=== PATIENT | male | born 1960 | race Caucasian/White ===

== ENCOUNTER 2016-10-08 11:52 | Emergency (ER) | payer OTHER ==
[~2016-10-08] VITALS: Wt 136.4 kg
[~2016-10-08 11:52] MED LIST: ADV50050 INH; FAMO-95 PO; GABA300C16 PO; GLIP-95 PO; HYDR-762 PO; LEVO750T8 PO; LISI20TA11 PO; MED4DP PO; METF1000 PO; RTATR NEB; RTPRO5 NEB; SITA50TA2 PO
[2016-10-08] MEDS ORDERED: FAMOTIDINE 20 MG INJ IV STA (12:14)
[2016-10-08] MEDS ORDERED: SOD CHLORIDE 0.9% 1,000 ML IV STA (12:14)
[2016-10-08] MEDS ORDERED: ONDANSETRON 4 MG INJ IV STA (12:14)
[2016-10-08] MEDS ORDERED: ALBUTEROL 0.083% (NEB) 2.5 MG/3 ML AMP NEB STA (12:15)
[2016-10-08] MEDS ORDERED: IPRATROPIUM (NEB) 0.5 MG/2.5 ML AMP NEB STA (12:15)
[2016-10-08 12:37] LABS: ADD SCAN DIFF NO
[2016-10-08 12:42] LABS: BASOPHILS % 0.5 % (0.0-2.0); EOSINOPHILS # 0.2 10^3/ul (0.0-0.5); EOSINOPHILS % 2.6 % (0.0-7.0); HEMATOCRIT 52.3 % (42.0-52.0); HEMOGLOBIN 17.1 g/dl (14.0-18.0); LYMPHOCYTES # 1.1 10^3/ul (0.8-2.9); LYMPHOCYTES % 18.5 % (15.0-51.0); MEAN CORPUSCULAR HEMOGLOBIN 29.1 pg (29.0-33.0); MEAN CORPUSCULAR HGB CONC 32.7 g/dl (32.0-37.0); MEAN CORPUSCULAR VOLUME 88.9 fl (82.0-101.0); MONOCYTE # 0.7 10^3/ul (0.3-0.9); NEUTROPHIL # 3.8 10^3/ul (1.6-7.5); NEUTROPHILS % 66.1 % (39.0-77.0); PLATELET COUNT 117 10^3/UL (140-415); RED BLOOD COUNT 5.88 10^6/ul (4.70-6.10); RED CELL DISTRIBUTION WIDTH 14.2 % (11.5-14.5); WHITE BLOOD COUNT 5.7 10^3/ul (4.8-10.8)
[2016-10-08 12:51] LABS: ALBUMIN 4.2 g/dl (3.3-4.9); POTASSIUM 3.6 mmol/L (3.5-5.1)
[2016-10-08 12:53] LABS: BILIRUBIN,DIRECT 0.2 mg/dl (0.00-0.20); BILIRUBIN,INDIRECT 2.6 mg/dl (0-1.1); BILIRUBIN,TOTAL 2.8 mg/dl (0.2-1.3); CREATININE 0.59 mg/dl (0.61-1.24)
[2016-10-08 12:54] LABS: ALBUMIN/GLOBULIN RATIO 0.91; CALCIUM 8.9 mg/dl (8.4-10.2); TOTAL PROTEIN 8.8 g/dl (6.1-8.1)
[2016-10-08] MEDS ORDERED: hydrALAzine 20 MG INJ IV ONE (13:00)
[2016-10-08] MEDS ORDERED: HYDROCODONE/APAP (5/325) TAB PO ONE (14:00)
[2016-10-08] MEDS ORDERED: OXYC5CAP17 PO (14:07)
[2016-10-08] MEDS ORDERED: oxyCODONE (CR) 10 MG TAB [oxyCONTIN] PO ONE (14:30)
--- NOTE | 2016-10-08 15:05 | RADRPT ---
PROCEDURE: CT Abdomen and Pelvis without contrast. CLINICAL INDICATION: Lower abdominal pain TECHNIQUE: CT of the abdomen and pelvis was performed on a multi-detector scanner without IV contr ast. Coronal and sagittal images were reformatted from the axial data set. One or more of the foll owing dose reduction techniques were used: automated exposure control, adjustment of the mA and/or kV according to patient size, use of iterative reconstruction technique. CTDI = 14.22 mGy. DLP = 87 5.54 mGy-cm. COMPARISON: None. FINDINGS: CT abdomen: The lung bases are clear. The heart size is normal, without pericardial effusion. Liver, gallbladd er, biliary tree, pancreas, spleen, adrenal glands and kidneys are unremarkable. No urolithiasis or obstructive uropathy is identified. The stomach is grossly unremarkable. The aorta is of normal caliber. There is no retroperitoneal lymphadenopathy. The ryan hepatis reg ion is clear. CT pelvis: No bowel obstruction, free intraperitoneal air or abscess is identified. There is no diverticulosis , diverticulitis, colitis or appendicitis. Urinary bladder is grossly unremarkable. No pelvic mass , free fluid or lymphadenopathy is identified. The surrounding osseous structures are remarkable for mild degenerative spondylosis of the spine. N o osteolytic or osteoblastic lesion is detected. IMPRESSION: 1. No urolithiasis or obstructive uropathy is seen. 2. No mass, lymphadenopathy, or focal acute inflammatory process is identified. RPTAT: EE .Mazin Avila MD, Date Time Electronically viewed and signed by .Mazin Avila MD, MD on 10/08/2016 15:05 .R/
--- NOTE | 2016-10-08 16:53 | RADRPT ---
PROCEDURE: CT Abdomen and Pelvis without contrast. CLINICAL INDICATION: Lower abdominal pain TECHNIQUE: CT of the abdomen and pelvis was performed on a multi-detector scanner without IV contr ast. Coronal and sagittal images were reformatted from the axial data set. One or more of the foll owing dose reduction techniques were used: automated exposure control, adjustment of the mA and/or kV according to patient size, use of iterative reconstruction technique. CTDI = 23.7 mGy. DLP = 173 3.05 mGy-cm. COMPARISON: None. FINDINGS: CT abdomen: Patchy left lower lobe pulmonary consolidation is noted, concerning for pneumonia. The heart size i s normal, without pericardial effusion. The liver is cirrhotic. Indeterminate 2.4 cm hypodensity i s seen in the hepatic dome (3-43). Gallbladder, biliary tree and pancreas are unremarkable. Spleno megaly is noted measuring 15 cm. Adrenal glands and kidneys are unremarkable. No urolithiasis or o bstructive uropathy is identified. The stomach is grossly unremarkable. The aorta is of normal caliber. Aortic vascular calcifications are present. There is no retroperit cuellar lymphadenopathy. The ryan hepatis region is clear. CT pelvis: No bowel obstruction, free intraperitoneal air or abscess is identified. The appendix is well visua lized and normal. There is no diverticulosis, diverticulitis or colitis. Urinary bladder is grossl y unremarkable. No pelvic mass, free fluid or lymphadenopathy is seen. The surrounding osseous structures are remarkable for degenerative spondylosis of the spine. No ost eolytic or osteoblastic lesion is detected. IMPRESSION: 1. Patchy left lower lobe pulmonary consolidation is noted, concerning for pneumonia. 2. The liver is cirrhotic. Indeterminate 2.4 cm hypodensity is seen in the hepatic dome - HCC pooja ot be excluded in the setting of cirrhosis. Consider multiphase contrast enhanced CT or MRI of the liver for further characterization. 3. Splenomegaly is noted, which can be seen in the setting of portal hypertension. 4. Aortoiliac atherosclerotic calcifications are present. 5. There is degenerative spondylosis of the spine. RPTAT: EE .Mazin Avila MD, MD Date Time Electronically viewed and signed by .Mazin Avila MD, MD on 10/08/2016 16:53 .R/
[2016-10-08] MEDS ORDERED: AZIT250T94 PO (17:04)
--- NOTE | 2016-10-08 17:04 | ERD ---
ER Documentation Chief Complaint Date/Time DATE: 10/08/16 TIME: 17:01 Chief Complaint VOMITING FOR THE PAST WEEKEND. WITH BLACK STOOLS AND DIARRHEA. ABD PAIN HPI This 66-year-old male presents to the emergency room with a chief complaint of vomiting and diarrhea for the past 3 days. The patient states that he has a crampy feeling in his abdomen and came to the ER today for evaluation. Patient denies any fevers, chills, blood in stools or urine. ROS All systems reviewed and are negative except as per history of present illness. Medications Home Meds Active Scripts Methylprednisolone* (Medrol* DOSE PACK) 4 Mg/Dose-Pack Tab.ds.pk, 4 MG PO . DIRECTED, #1 PACKET Prov:JIMMY CANTU 10/04/15 Salmeterol Xinaf-Fluticasone* (Advair*) 1 Inh Inha, 1 INH INH BID for 30 Days, 3 Refills Prov:Kelley CANTUFreddyAMAIRANICORY Gudino 10/04/15 Ipratropium Prosper* (Atrovent*) 0.5 Mg/2.5 Ml Nebu, 0.5 MG NEB Q8 for 30 Days, 3 Refills Prov:Kelley CANTUFreddyAMAIRANICORY Gudino 10/04/15 Famotidine* (Pepcid* AC) 20 Mg Tab, 20 MG PO Q12 for 30 Days, TAB Prov:Kelley CANTUFreddyLALI Shahab 10/04/15 Albuterol Sulfate* (Proventil* Neb) 2.5 Mg/0.5 Ml Nebu, 2.5 MG NEB Q8 for 30 Days, 3 Refills Prov:Kelley CANTUFreddyLALI Shahab 10/04/15 Reported Medications Oxycodone Hcl* (IR) (Oxycodone Hcl*) 5 Mg Capsule, 10 MG PO QID Y for PAIN, CAP 10/08/16 Gabapentin* (Gabapentin*) 300 Mg Capsule, 600 MG PO TID, #180 CAP 10/02/15 Sitagliptin* (Januvia*) 50 Mg Tablet, 50 MG PO DAILY, #30 TAB 10/02/15 Metformin Hcl* (Metformin Hcl*) 1,000 Mg Tablet, 1000 MG PO BID WITH MEALS, #30 TAB 10/02/15 Glipizide* (Glipizide*) 10 Mg Tablet, 10 MG PO BID, TAB 10/02/15 Hydrocodone Bit-Acetaminophen* (Arch [place]*) 10-325 Mg Tablet, 1 TAB PO TID Y for PAIN, TAB 10/02/15 Lisinopril* (Lisinopril*) 20 Mg Tablet, 20 MG PO DAILY, #30 TAB 10/02/15 Discontinued Scripts Levofloxacin* (Levofloxacin*) 750 Mg Tablet, 750 MG PO DAILY for 5 Days, TAB Prov:JIMMY CANTU 10/04/15 Allergies Allergies: Coded Allergies: No Known Allergy (Unverified , 10/02/15) PMhx/Soc History of Surgery: No Anesthesia Reaction: No Hx Neurological Disorder: No Hx Respiratory Disorders: Yes (copd/asthma; sleep apnea on cpap) Hx Cardiac Disorders: Yes (htn, cad) Hx Psychiatric Problems: No Hx Miscellaneous Medical Probl: Yes (obesity; hep c) Hx Alcohol Use: No Hx Substance Use: No Hx Tobacco Use: Yes (ex smoker) Smoking Status: Former smoker Physical Exam Vitals Vital Signs Date Time Temp Pulse Resp B/P Pulse Ox O2 Delivery O2 Flow Rate FiO2 10/08/16 16:00 98.6 83 20 113/83 98 Nasal Cannula 2.0 10/08/16 13:52 93 Nasal Cannula 2.0 10/08/16 13:47 99.1 91 24 116/86 91 Room Air 10/08/16 12:45 90 20 95 21 10/08/16 12:04 98.8 100 22 186/100 96 Physical Exam INITIAL VITAL SIGNS: Reviewed by me GENERAL: The patient is well developed and appropriate for usual state of health in no apparent distress HEENT: Pupils equal, round, and reactive to light. EOMI. There is no scleral icterus. NECK: C-spine is soft and supple, there is no meningismus. There is no cervical lymphadenopathy. LUNGS: Wheezing auscultated in the bilateral lobes HEART: Regular rate and rhythm, no murmurs, clicks, rubs or gallops. ABDOMEN: Soft, non-tender, non-distended. There are bowel sounds in all four quadrants. No rebound or guarding. EXTREMITIES: There is no peripheral cyanosis or edema. No focal swelling or erythema. NEUROLOGICAL: The patient moves all four extremities with 5/5 strength. Cranial nerves II - XII are intact. Normal gait. Alert and oriented SKIN: There is no apparent rash or petechiae. HEME/LYMPHATIC: There is no evidence of excessive bruising or lymphedema. PSYCHIATRIC: The patient does not appear anxious or depressed. Result Diagram: 10/08/16 1215 10/08/16 1215 Results 24 hrs Laboratory Tests Test 10/08/16 12:15 Alanine Aminotransferase (ALT/SGPT) 111IU/L Albumin 4.2g/dl Albumin/Globulin Ratio 0.91 Alkaline Phosphatase 156IU/L Anion Gap 17 Aspartate Amino Transf (AST/SGOT) 188IU/L Basophils # 0.010^3/ul Basophils % 0.5% Blood Urea Nitrogen 10mg/dl Calcium Level 8.9mg/dl Carbon Dioxide Level 31mmol/L Chloride Level 86mmol/L Creatinine 0.59mg/dl Direct Bilirubin 0.20mg/dl Eosinophils # 0.210^3/ul Eosinophils % 2.6% Globulin 4.60g/dl Glucose Level 258mg/dl Hematocrit 52.3% Hemoglobin 17.1g/dl Indirect Bilirubin 2.6mg/dl Lipase 147U/L Lymphocytes # 1.110^3/ul Lymphocytes % 18.5% Mean Corpuscular Hemoglobin 29.1pg Mean Corpuscular Hemoglobin Concent 32.7g/dl Mean Corpuscular Volume 88.9fl Mean Platelet Volume 11.0fl Monocytes # 0.710^3/ul Monocytes % 12.0% Neutrophils # 3.810^3/ul Neutrophils % 66.1% Nucleated Red Blood Cells # 0.010^3/ul Nucleated Red Blood Cells % 0.0/100WBC Platelet Count 84649^3/UL Potassium Level 3.6mmol/L Red Blood Count 5.8810^6/ul Red Cell Distribution Width 14.2% Sodium Level 130mmol/L Total Bilirubin 2.8mg/dl Total Protein 8.8g/dl White Blood Count 5.710^3/ul Current Medications Medications (Trade) Dose Ordered Sig/Adam Route PRN Reason Start Time Stop Time Status Last Admin Dose Admin Sodium Chloride (NS) 1,000 ml @ 1,000 mls/hr Q1H STAT IV 10/08/16 12:14 10/08/16 13:13 DC 10/08/16 12:36 Ondansetron HCl (Zofran Inj) 4 mg ONCE STAT IV 10/08/16 12:14 10/08/16 12:15 DC 10/08/16 12:36 Famotidine (Pepcid Iv) 20 mg ONCE STAT IV 10/08/16 12:14 10/08/16 12:15 DC 10/08/16 12:36 Albuterol (Proventil 0.083% (Neb)) 5 mg ONCE STAT NEB 10/08/16 12:15 10/08/16 12:16 DC 10/08/16 12:44 Ipratropium Prosper (Atrovent 0.02% (Neb)) 0.5 mg ONCE STAT NEB 10/08/16 12:15 10/08/16 12:16 DC 10/08/16 12:44 Hydralazine HCl (Apresoline) 10 mg ONCE ONCE IV 10/08/16 13:00 10/08/16 13:01 DC 10/08/16 12:43 Acetaminophen/ Hydrocodone Bitart ([place] (5/325)) 1 tab ONCE ONCE PO 10/08/16 14:00 10/08/16 14:01 DC Oxycodone HCl (Oxycontin) 10 mg ONCE ONCE PO 10/08/16 14:30 10/08/16 14:31 DC 10/08/16 14:24 Procedures/MDM CT abdomen pelvis without: 1. Patchy left lower lobe pulmonary consolidation is noted, concerning for pneumonia. 2. The liver is cirrhotic. Indeterminate 2.4 cm hypodensity is seen in the hepatic dome - HCC cannot be excluded in the setting of cirrhosis. Consider multiphase contrast enhanced CT or MRI of the liver for further characterization. 3. Splenomegaly is noted, which can be seen in the setting of portal hypertension. 4. Aortoiliac atherosclerotic calcifications are present. 5. There is degenerative spondylosis of the spine. This 56-year-old male presents to the emergency room for evaluation of abdominal cramping and diarrhea. When I evaluated this patient he had no specific point tenderness on his abdomen. CT the abdomen was obtained which does incidentally show left lower lobe pneumonia. This patient is afebrile, not tachycardic, not hypoxic, and has no leukocytosis. This patient will be discharged home with a prescription for azithromycin. The patient states that he is feeling better after IV fluids I advised him he is likely suffering from a viral gastritis. The patient will be discharged home at this time. He is hemodynamically stable. This patient's sodium was 130, however previous sodium was the same. Patient does not have any altered mental status. Departure Diagnosis: Primary Impression: Left lower lobe pneumonia Additional Impressions: Vomiting and diarrhea Hyponatremia Condition: Stable ALMA ALEMAN DO Oct 08, 2016 17:04
[2016-10-08 17:08] VITALS: BP 121/69; PULSE 86; RESP 18; TEMP 98.6
== END 2016-10-08 17:09 | disposition home or self-care (01) ==
LOC: E/R 11:52
DX: J18.1 Lobar pneumonia, unspecified organism (principal); R19.7 Diarrhea, unspecified; E87.1 Hypo-osmolality and hyponatremia; I10 Essential (primary) hypertension; I25.10 Atherosclerotic heart disease of native coronary artery without angina pectoris; J44.9 Chronic obstructive pulmonary disease, unspecified; E66.9 Obesity, unspecified; E11.9 Type 2 diabetes mellitus without complications; R06.2 Wheezing; Z87.891 Personal history of nicotine dependence; Z79.84 Long term (current) use of oral hypoglycemic drugs
CPT/HCPCS: 36415; 74176; 80053; 83690; 85025; 94664; 96374; 96375; J0360; J2405; J7030; Z7502; Z7610